=== PATIENT | male | born 1980 | race Caucasian/White ===

== ENCOUNTER 2023-06-10 14:00 | Outpatient (RCR) | payer BC, SELFPAY | END 2023-08-21 14:44 | disposition home or self-care (01) | LOC: HO.WCC 14:00 | PROVIDERS: PCP Internal Medicine; Visit Provider Physician Assistant | DX: L97.522 Non-pressure chronic ulcer of other part of left foot with fat layer exposed (principal); G90.09 Other idiopathic peripheral autonomic neuropathy; L84 Corns and callosities; M54.16 Radiculopathy, lumbar region | CPT/HCPCS: 11042; 97597; 99212 ==